=== PATIENT | female | born 1995 | race Caucasian/White ===

== ENCOUNTER 2021-05-09 13:08 | Observation (INO) | payer OTHER, SELFPAY ==
--- NOTE | ~2021-05-09 | CT_ITS ---
EXAMINATION: CT abdomen pelvis w con DATE: 05/09/2021 14:21 INDICATION: Right lower quadrant abdominal pain and flank pain. TECHNIQUE: Computed tomography (CT) of the abdomen and pelvis was performed with 100 mL Omnipaque-350 intravenous contrast. Automated exposure control and iterative reconstruction technique were employe d. The dose-length product was 301.18 mGy-cm. COMPARISON: 01/18/2015 FINDINGS: Millimeter pleural-based nodule at the posterior left lower lobe. Heart size is normal. No pericardia l or pleural effusion. Liver, gallbladder, spleen, pancreas, bilateral adrenal glands and left kidney are normal. There is urothelial enhancement at the right ureter and right renal pelvis suspicious fo r ascending urinary tract infection. There is a small region of decreased parenchymal enhancement at a renal pyramid at the interpolar region of the right kidney suspicious for early pyelonephritis. [place] els including the appendix are normal. Bladder, anteverted uterus and left adnexa are normal. 2 cm pe ripherally enhancing likely corpus luteum cyst in the right ovary. Small amount of likely physiologic free fluid at the cul-de-sac. No abscess or free intraperitoneal gas. No pathologically enlarged abd ominal or pelvic lymphadenopathy. Bones are unremarkable. IMPRESSION: 1. Findings consistent with right-sided ascending urinary tract infection and likely early right pyel onephritis. Reviewed, dictated and finalized at location A. ATTENDANT IMPRESSION: 1. Findings consistent with right-sided ascending urinary tract infection and l ikely early right pyelonephritis.
--- NOTE | ~2021-05-09 | US_ITS ---
EXAMINATION: US abdomen limited DATE: 05/10/2021 14:44 INDICATION: Right upper quadrant pain TECHNIQUE: Multiple grayscale and Doppler ultrasound images of the abdomen were obtained. COMPARISON: None available FINDINGS: Bowel gas obscures visualization of the pancreas. The liver is normal with normal echogenic ity and echotexture. No surface nodularity. Normal hepatopetal flow in the main portal vein. The gall bladder is normal with no abnormal wall thickening, pericholecystic fluid or stones. The normal commo n bile duct measures 3 mm. There was no sonographic Peguero sign. IMPRESSION: 1. Normal sonographic study of the gallbladder. Reviewed, dictated and finalized at location A. 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
[2021-05-09 13:14] VITALS: BP 146/86; PULSE 108; RESP 16; TEMP 36.8; O2SAT 95
[2021-05-09 13:49] LABS: Basophils Percent Auto 0.2 % (0.2-1.2); Hematocrit 38.4 % (37.0-47.0); Immature Granulocyte Absolute 0.05 K/mm3 (0.00-0.031); Immature Granulocyte Percent A 0.4 % (0-0.5); Lymphocytes Absolute Auto 1.25 K/mm3 (0.9-3.2); Lymphocytes Percent Auto 9.6 % (18.3-44.2); Mean Corpuscular HGB Conc 33.9 g/dl (32-36); Mean Corpuscular Hemoglobin 29.6 pg (26-34); Mean Corpuscular Volume 87.5 fl (80-100); Mean Platelet Volume 9.6 fl (7.4-10.4); Monocytes Absolute Auto 1.2 K/mm3 (0.1-0.6); Monocytes Percent Auto 9.2 % (2.6-8.5); Neutrophils Absolute Auto 10.4 K/mm3 (1.3-6.7); Neutrophils Percent Auto 80.6 % (45.5-73.1); Platelet Count Result 261 k/mm3 (150-375); Red Blood Count 4.39 M/mm3 (4.2-5.4); Red Cell Distribution Width 13.2 % (11.5-14.5)
[2021-05-09 13:59] LABS: Alanine Aminotransferase 15 U/L (4-35); Albumin Level 4.4 g/dL (3.5-5.1); Alkaline Phosphatase 58 U/L (38-126); Anion Gap 8 mmol/L (8-16); Aspartate Amino Transferase 18 U/L (14-36); Bilirubin,Total 0.9 mg/dL (0.2-1.3); Blood Urea Nitrogen 8 mg/dL (7-17); Calcium 9.2 mg/dL (8.4-10.2); Carbon Dioxide 21 mmol/L (22-30); Chloride 105 mmol/L (98-107); Estimated CRCL calculation 103 ml/min; Estimated Glomerular Filt Rate > 60; Glucose 104 mg/dL (65-110); Lipase 21 U/L (23-300); Potassium 3.8 mmol/L (3.4-5.0); Sodium 134 mmol/L (137-145)
[2021-05-09 14:11] LABS: Add Urine Microscopic? NO; Appearance Urine Clear (Clear); Bilirubin Urine Negative (Negative); Blood Urine Negative (Negative); Color Urine Colorless (Yellow); Glucose Urine UA Negative (Negative); Ketones Urine Negative (Negative); Leukocyte Esterase Ur Negative LEU/UL (Negative); Nitrate Urine Negative (Negative); Protein Urine Negative (Negative); Urobilinogen Urine Negative mg/dL (<2.0)
--- NOTE | 2021-05-09 14:22 | PC.NURSE ---
pt returned from CT via stretcher.
[2021-05-09 14:23] LABS: Specific Grav Ur 1.002 (1.001-1.035)
--- NOTE | 2021-05-09 14:57 | ED.ABDPAIN ---
HPI - Abdominal Pain General Chief Complaint: Abdominal Pain Stated Complaint: lower abd pain Time Seen by Provider: 05/09/21 13:27 Source: patient Mode of arrival: ambulatory Limitations: no limitations History of Present Illness HPI narrative: This 25 year old female patient with no significant PMH presents to the ER with complaints of having RLQ, suprapubic, RUQ and right flank pain for the past two days. She was evaluated at Urgent care and then referred here. The concern there was for possible Appendicitis, although they did detect that she has a UTI. She denies any fevers for this provider and she has no CP, dyspnea, N/V/D. MD elicited complaint: abdominal pain and flank pain Pertinent past history: none Onset (ago): day(s) (2) Pain Consistency: constant Location: RUQ, RLQ, R flank and suprapubic Severity: mild Pain scale (0-10): 3 Quality: aching Radiation: none Migration to: no migration Exacerbating factors: nothing Relieving factors: nothing Associated symptoms: nausea Treatments prior to arrival: NSAIDs and prescription analgesics Related Data Patient : No Home Medications Medication Instructions Recorded Confirmed No Home Medications 05/09/21 05/09/21 Allergies Allergy/AdvReac Type Severity Reaction Status Date / Time No Known Allergies Allergy Verified 11/30/14 11:08 Review of Systems Review of Systems: All systems reviewed & are unremarkable except as noted in HPI and below Constitutional: Constitutional: Reports no additional constitutional complaints, Denies chills, Denies fever(s) and Denies weakness Cardiovascular: Cardiovascular: Denies chest pain, Denies rapid heart rate and Denies slow heart rate Respiratory: Respiratory: Denies chest congestion, Denies cough, Denies dyspnea and Denies wheezing Gastrointestinal: Gastrointestinal: Reports as per HPI, Denies diarrhea, Reports nausea and Denies vomiting Musculoskeletal: Musculoskeletal: Denies back pain Neurologic: Denies dizziness, Denies headache(s), Denies focal weakness, Denies numbness and Denies weakness Psychiatric: Psychiatric: Denies anxiety and Denies depression Endocrine: Endocrine: Denies excessive sweating, Denies fatigue, Denies polydipsia and Denies polyuria Hematologic/Lymphatic: Hematologic/Lymphatic: Denies easy bleeding and Denies easy bruising Allergic/Immunologic: Allergic/Immunologic: Denies lip swelling, Denies throat swelling, Denies tongue swelling and Denies wheezing Exam Const: General: healthy appearing, no acute distress and alert Orientation/consciousness: patient oriented x3 HENMT: Head: normal to inspection General nose exam: Normal nares present Face and sinus: normal facial exam Mouth: Yes moist mucous membranes Eyes: Pupils: Equal, round and reactive pupils present Neck: Neck: normal visual inspection and no lymphadenopathy Chest: Chest palpation & inspection: normal inspection of the chest Resp: Effort & Inspection: normal respiratory effort, not labored, not tachypneic and no use of accessory muscles Auscultation: clear to auscultation bilaterally Cardio: Rate: regular rate Rhythm: regular rhythm GI: GI Palp: Yes Soft to palpation, Yes Tenderness to palpation present (GI), No Guarding due to palpation present (GI), No Rigid due to palpation, No Hernia present, No Palpable mass present and No Rebound tenderness present Auscultation: normal bowel sounds : General: Yes no CVA tenderness Back/Spine/Pelvis: Back: no CVA tenderness Skin: General skin exam: normal color Rashes: no rashes Neuro: General: patient oriented x3, moves all extremities and no focal motor deficits Extrem: General: normal to inspection and no edema Psych: Appearance: grossly normal Mental Status: mental status grossly normal Affect: normal affect Attitude: cooperative Thought content: Yes Normal thought content present Course Course Emergency Course: I paged the Hospitalist to discuss observatio
[2021-05-09] MEDS: SODIUM CHLORIDE 0.9% IV 1,000 ML 999 ML IV CONT (15:27)
[2021-05-09 16:14] LABS: Lactic Acid Reflex 0.6 mmol/L (0.7-2.1)
[2021-05-09] MEDS: HYDROmorphone HCL INJ (*CRX) 1 MG/ML SYR IV PUSH (16:14)
[2021-05-09] MEDS: ONDANSETRON INJ 4 MG/2 ML VIAL IV PUSH (16:14)
[2021-05-09 17:57] VITALS: BP 124/83; PULSE 110; RESP 16; O2SAT 100
[2021-05-09] MEDS: SODIUM CHLORIDE 0.9% IV 1,000 ML 100 ML IV CONT (18:09)
--- NOTE | 2021-05-09 18:15 | ADMGEN ---
This patient, Lissette Lema, was admitted to 3 [facility] Surg Room 312-01. Report received from HIEU Bridges. Patient/family oriented to hospital policies and general routines including ID bracelet, bed and alarms, visiting hours, pain management, procedures, bathroom and other care routines, personal items, smoking policy, room service/diet, and visiting hours. Information on how to activate the Rapid Response Team has been discussed. Patient/Family are encouraged to report perceived risks to care and to ask questions if they do not understand what they are told or what they should do.
[2021-05-09 20:00] VITALS: BP 123/73; PULSE 86; RESP 18; TEMP 35.6; O2SAT 100
--- NOTE | 2021-05-09 20:12 | PM.IMHP ---
H&P: HPI History of Present Illness Date/Time: 05/09/21 20:12 Chief Complaint: Flank pain. Narrative: This is a 25-year-old female with past medical history significant for recurrent urinary tract infection, former tobacco user, patient presents to the emergency room after having 3 days of right costovertebral angle tenderness now localized to the right flank, patient denies any pain or burning with urination has had some fevers and body aches and pains generalized malaise and poor appetite. Preliminary workup was significant for urinalysis with numerous wbc's, a CT of abdomen and pelvis showed early right-sided pyelonephritis ascending urinary tract infection. Patient has been admitted for the evaluation management and treatment. Review of Systems Review of Systems: Generalized malaise, fevers, muscle aches and pains, right costovertebral angle tenderness, right flank tenderness. Constitutional: Constitutional: Reports chills, Reports fever(s), Reports malaise and Reports poor appetite Eyes: Eyes: Denies change in vision ENT: Denies dysphagia, Denies vertigo, Denies dizziness, Denies nasal congestion, Denies nasal discharge, Denies nasal obstruction and Denies odynophagia Cardiovascular: Cardiovascular: Denies chest pain, Denies claudication, Denies leg edema, Denies lightheadedness, Denies radiating jaw, neck or arm pain, Denies palpitations, Denies dyspnea, Denies dyspnea on exertion and Denies orthopnea Respiratory: Respiratory: Denies cough and Denies dyspnea Gastrointestinal: Gastrointestinal: Denies abdominal pain, Denies diarrhea, Denies nausea and Denies vomiting Genitourinary: Genitourinary: Reports flank pain Musculoskeletal: Musculoskeletal: Reports myalgias Integumentary/Breasts: Skin/Breast: Denies rash Neurologic: Denies focal weakness and Denies Sensory deficit (Neuro) Psychiatric: Psychiatric: Reports no additional psychiatric complaints and Reports as per HPI Endocrine: Endocrine: Denies cold intolerance, Denies heat intolerance, Denies polyphagia, Denies polydipsia, Denies polyuria and Denies palpitations Hematologic/Lymphatic: Hematologic/Lymphatic: Reports no additional hematologic/lymphatic complaints and Reports as per HPI Allergic/Immunologic: Allergic/Immunologic: Reports no additional allergic/immunologic complaints and Reports as per HPI [facility] Social History Social History Smoking packs per day: 1 Smoking cigarettes per day: 20.0 Years smoked: 9 Smoking pack-years: 9.00 Smoking status: Former smoker Tobacco type: cigarettes Alcohol intake: current Drinks per week: 2 Substance use: current Substance use type: marijuana Spiritual care concerns: No Meds Home Medications and Allergies Home Medications Medication Instructions Recorded Confirmed Type No Home Medications 05/09/21 05/09/21 History Allergies Allergy/AdvReac Type Severity Reaction Status Date / Time No Known Allergies Allergy Verified 05/09/21 18:16 Vital Signs Vital Signs - 24 hr 05/09/21 13:14 05/09/21 17:57 Temperature 98.2 F Pulse Rate 108 H 110 H Respiratory Rate 16 16 Blood Pressure 146/86 H 124/83 Pulse Oximetry 95 100 Exam Const: General: cooperative, comfortable, no acute distress, well developed, alert, awake, Physically active and other (Well-appearing) Nutritional Appearance: average body habitus Orientation/consciousness: patient oriented x3 HENMT: Head: normal to inspection, normocephalic and atraumatic Ears: hearing grossly normal bilaterally General nose exam: Normal external nose present Face and sinus: normal facial exam Mouth: Yes Normal oral and palatal mucosa present Eyes: General: appearance normal, both eyes and all related structures Alignment and Position: alignment normal Sclera: sclerae normal Pupils: Equal, round and reactive pupils present EOM: EOMs intact bilaterally Neck: Neck: cynthia
[2021-05-09] MEDS: FAMOTIDINE 20 MG/2 ML VIAL IV PUSH (21:15)
[2021-05-10] VITALS (8 sets, daily range): BP systolic 111–138; BP diastolic 66–85; PULSE 90–112; RESP 16–18; TEMP 36.3–37.4; O2SAT 96–100
[2021-05-10] MEDS: methocarbamoL 500 MG TABLET PO (00:53)
[2021-05-10] MEDS: SODIUM CHLORIDE 0.9% IV 1,000 ML 100 ML IV CONT (03:24)
[2021-05-10 09:16] LABS: Hematocrit 36.3 % (37.0-47.0); Hemoglobin 12.2 g/dL (12.0-15.0); Mean Corpuscular HGB Conc 33.6 g/dl (32-36); Mean Corpuscular Hemoglobin 29.5 pg (26-34); Mean Corpuscular Volume 87.9 fl (80-100); Mean Platelet Volume 9.7 fl (7.4-10.4); Platelet Count Result 254 k/mm3 (150-375); Red Blood Count 4.13 M/mm3 (4.2-5.4); Red Cell Distribution Width 13.1 % (11.5-14.5); White Blood Count 9.5 K/mm3 (4.5-10.0)
[2021-05-10 09:28] LABS: Anion Gap 10 mmol/L (8-16); Blood Urea Nitrogen 5 mg/dL (7-17); Calcium 8.7 mg/dL (8.4-10.2); Carbon Dioxide 22 mmol/L (22-30); Chloride 105 mmol/L (98-107); Estimated CRCL calculation 103 ml/min; Estimated Glomerular Filt Rate > 60; Glucose 128 mg/dL (65-110); Potassium 3.6 mmol/L (3.4-5.0); Sodium 137 mmol/L (137-145)
[2021-05-10] MEDS: HYDROcodone/acetaminophen (*CRX) 5-325 MG TABLET 1 TAB PO ×2 (09:44→13:57)
[2021-05-10] MEDS: FAMOTIDINE 20 MG/2 ML VIAL IV PUSH ×2 (09:44→20:30)
--- NOTE | 2021-05-10 10:35 | PM.IMPN ---
Progress Note: A&P Assessment and Plan (1) Pyelonephritis: Code(s): N12 - Tubulo-interstitial nephritis, not specified as acute or chronic Status: Acute Assessment and Plan: Presented with right back, flank, and upper quadrant pain UA completed at urgent care noted to have blood and bacteria, culture reportedly sent. I have contacted [facility] urgent care for further information to have these results faxed to us, awaiting return call UA at this facility without concerns for infection. No reflex culture was collected and at this time will not repeat culture as she has already received IV antibiotics. CT abdomen/pelvis showed findings consistent with ascending urinary tract infection, likely early right pyelonephritis. Continue IV Rocephin Gentle IV fluids Supportive care. Analgesics and antiemetics available as needed Blood cultures pending Leukocytosis resolved. Patient remains afebrile at this facility. Lactic within normal limits In light of RUQ pain, will proceed with right upper quadrant ultrasound although suspect this is most likely secondary to pyelonephritis Subjective Date/time seen: 05/10/21 10:35 Interval history: Date of service: 05/10/2021 Lissette Lema is a healthy 25-year-old female who is seen in follow-up for pyelonephritis. She is feeling a bit better today. She stated that 1 week ago she developed sudden onset of right flank pain, a couple days following she developed diffuse body aches and had a single episode of dysuria. She also had right upper quadrant pain. Her symptoms did not improve, therefore she went to urgent care 1 day ago where urine test was done. She stated that her urine was dark at that time but she did not have dysuria, hematuria, urgency, or frequency. She also noted that her temperature was 100.3? on initial vitals. She was told that her urine had blood and bacteria and a culture was done. She was directed to the ED where her urine was surprisingly clear without any findings to suggest infection, however a CT scan did show findings consistent with pyelonephritis. At this time, she endorses 7/10 right back and flank pain spreading to the right upper quadrant. Her pain has been up to a 9/10 today and has not gotten below 7. She does endorse some suprapubic discomfort but she states this feels like cramping, as though she might be about to start her menstrual cycle. Her last menstrual period was 4 weeks ago. She does endorse regular periods. Today she has had episodes of feeling intermittently hot and cold and she is endorses sweats. She also endorses nausea and has decreased appetite. She has been able to get up and walk around. She denies dizziness or lightheadedness. Denies shortness of breath, cough, or chest pain. She does note that taking a deep breath does cause worsened pain in her right side. Review of Systems Review of Systems: All systems reviewed & are unremarkable except as noted in HPI and below Exam Narrative: General: Well-nourished, well-appearing 25 year-old female, sitting up in bed, comfortable, NARD Neuro: awake, alert and oriented x4, speech clear, no focal neuro deficits noted HEENMT: normocephalic, atraumatic, EOMI, sclerae anicteric, moist oral mucosa Respiratory: clear to auscultation bilaterally, nonlabored breathing Cardio: regular rate, regular rhythm with S1-S2 Abdomen: nondistended, normoactive bowel sounds, soft, slight RUQ tenderness, Peguero sign negative : Right-sided CVA tenderness Extremities: no edema, erythema, or tenderness to palpation Skin: no rashes or lesions, warm and damp Psych: appropriate mood and affect, judgment and insight intact Objective Data Vital Signs Vital Signs: Vital Signs - 24 hr 05/09/21 13:14 05/09/21 17:57 05/09/21 20:00 Temperature 98.2 F 96.0 F L Pulse Rate 108 H 110 H 86 Respiratory Rate 16 16 18 Blood Pressure 146/86 H 124/83 123/73 Pulse Oximetry 95 100 100 05/10/21 00:
[2021-05-10] MEDS: ENOXAPARIN 40 MG/0.4 ML SYRINGE SUB-Q (11:23)
--- NOTE | 2021-05-10 11:28 | PC.NURSE ---
I attempted to administer the scheduled Enoxaparin 40mg sub-q this morning however the syringe was defective requiring a new one to be sent up from the pharmacy. Upon receipt of the new syringe, I entered pt's room to admin the schedule med upon which the pt's boyfriend was not in the room. He informed me that the other nurse said she didn't need that any more. I attempted to ascertain as to whom he was referring as I am the pt's nurse for the day (which is why I have been in her room several times and administered her other medications) and I never said anything of that nature. The boyfriend became more aggressive but I was able to glean that he was referring to the hospitalist, Shelli Burrell. I explained that she was the hospitalist and that if she had wanted the medication withheld or stopped she would have changed the order to do so therefore since there has been no order changed for this medication (other orders have been entered such as a reduction in the IV fluids, et al.), I have no reason not to administer it unless THE PATIENT is refusing to take the med. The pt stated she is willing to take the med. The boyfriend then very curtly snapped, maybe you just haven't bothered to communicate with her [Shelli]. I explained that other orders have been changed and this one was not therefore she obviously intended for the pt to receive this med. I then left the room to avoid any further aggression from the pt's boyfriend. Upon exiting the room and closing the door, I attempted to contact Shelli Burrell but was not able to do so. I will continue to monitor.
[2021-05-10] MEDS: SODIUM CHLORIDE 0.9% IV 1,000 ML 75 ML IV CONT (13:58)
[2021-05-10] MEDS: MORPHINE SULFATE (*CRX) 2 MG/ML INJ 1 MG IV PUSH (17:16)
[2021-05-10] MEDS: ONDANSETRON INJ 4 MG/2 ML VIAL IV PUSH (17:16)
[2021-05-11] VITALS: BP 121/83; PULSE 93; RESP 16; TEMP 36.6; O2SAT 100
[2021-05-11 01:32] VITALS: TEMP 36.6
[2021-05-11 04:00] VITALS: BP 122/77; PULSE 84; RESP 16; TEMP 36.6; O2SAT 100
[2021-05-11] MEDS: SODIUM CHLORIDE 0.9% IV 1,000 ML 75 ML IV CONT (04:20)
[2021-05-11 06:59] LABS: Hematocrit 34.6 % (37.0-47.0); Hemoglobin 11.2 g/dL (12.0-15.0); Mean Corpuscular HGB Conc 32.4 g/dl (32-36); Mean Corpuscular Hemoglobin 29.3 pg (26-34); Mean Corpuscular Volume 90.6 fl (80-100); Mean Platelet Volume 9.9 fl (7.4-10.4); Platelet Count Result 245 k/mm3 (150-375); Red Blood Count 3.82 M/mm3 (4.2-5.4); Red Cell Distribution Width 13.2 % (11.5-14.5); White Blood Count 7.2 K/mm3 (4.5-10.0)
[2021-05-11 07:16] LABS: Anion Gap 7 mmol/L (8-16); Blood Urea Nitrogen 4 mg/dL (7-17); Calcium 8.3 mg/dL (8.4-10.2); Carbon Dioxide 26 mmol/L (22-30); Chloride 106 mmol/L (98-107); Estimated CRCL calculation 122 ml/min; Estimated Glomerular Filt Rate > 60; Glucose 95 mg/dL (65-110); Potassium 3.7 mmol/L (3.4-5.0); Sodium 139 mmol/L (137-145)
[2021-05-11 08:00] VITALS: BP 123/79; PULSE 83; RESP 16; TEMP 36.7; O2SAT 100
[2021-05-11] MEDS: FAMOTIDINE 20 MG/2 ML VIAL IV PUSH (08:24)
[2021-05-11] MEDS: HYDROcodone/acetaminophen (*CRX) 5-325 MG TABLET 1 TAB PO ×2 (08:24)
--- NOTE | 2021-05-11 10:46 | PM.DS ---
DS: Admitting Diagnosis Discharge Date 05/11/2021 Admitting Diagnosis Pyelonephritis DS: Discharge Diagnosis Discharge Diagnosis (1) Pyelonephritis: Code(s): N12 - Tubulo-interstitial nephritis, not specified as acute or chronic Status: Acute Assessment and Plan: Presented with right back, flank, and upper quadrant pain UA completed at urgent care noted to have blood and bacteria and she was referred to ED. Spoke with RN at urgent care and no culture was collected UA at this facility without concerns for infection, therefore no reflux culture. I did not repeat urine culture as she had already received 2 doses of IV antibiotics prior. CT abdomen/pelvis showed findings consistent with ascending urinary tract infection, likely early right pyelonephritis. She was treated with IV Rocephin Rehydrated with IV fluids Supportive care provided including analgesics antiemetics Blood cultures negative to date. Final cultures will be monitored Leukocytosis resolved. Patient remained afebrile. She had symptomatic improvement, pain had improved and she requested discharge Continue p.o. Bactrim DS bid x 10 days She will need to follow-up with PCP in 1 week for further monitoring Discussed worrisome signs and symptoms for which to seek follow-up evaluation DS: Summary Hospital Course Hospital Course: Date of admission: 05/09/2021 Date of discharge: 05/11/2021 Lissette Lema is a healthy 25-year-old female who presented to the emergency department on 05/09/21 after being referred to the ED from urgent care where she presented with complaints of right back and flank pain. Symptoms and imaging felt to be consistent with pyelonephritis and she was admitted to the hospitalist service for further evaluation and management. Please see above for further details. Patient did have improvement following treatment with IV antibiotics and she will continue oral antibiotics on discharge. She was discharged in hemodynamically stable condition on 05/11/2021 and will follow-up in 1 week for further monitoring Status at Discharge Functional status at discharge: independent ambulation Overall status at discharge: patient is progressing back to baseline Time Spent with Patient Time attestation: Total time spent providing and/or coordinating discharge services: 35 minutes Time spent: Greater than 30 minutes Exam Narrative: General: Well-nourished, well-appearing 25 year-old female, sitting up in bed, comfortable, NARD Neuro: awake, alert and oriented x4, speech clear, no focal neuro deficits noted HEENMT: normocephalic, atraumatic, EOMI, sclerae anicteric, moist oral mucosa Respiratory: clear to auscultation bilaterally, nonlabored breathing Cardio: regular rate, regular rhythm with S1-S2 Abdomen: nondistended, normoactive bowel sounds, soft, nontender to palpation : Mild right-sided CVA tenderness improved from prior exam Extremities: no edema, erythema, or tenderness to palpation Skin: no rashes or lesions, warm and damp Psych: appropriate mood and affect, judgment and insight intact DS: Data Data Completed and Pending Labs on day of discharge: Labs from last 24 hours 05/11/21 05/11/21 06:20 06:20 WBC 7.2 RBC 3.82 L Hgb 11.2 L Hct 34.6 L MCV 90.6 MCH 29.3 MCHC 32.4 RDW 13.2 Plt Count 245 MPV 9.9 Sodium 139 Potassium 3.7 Chloride 106 Carbon Dioxide 26 Anion Gap 7 L BUN 4 L Creatinine 0.50 L Estim Creat Clear Calc 122 Estimated GFR > 60 Glucose 95 Calcium 8.3 L Preliminary micro results at discharge 05/09/21 15:53 Blood Culture - Preliminary Blood 05/09/21 15:53 Blood Culture - Preliminary Blood Imaging Radiologist's impression: ITS Impressions Abdomen/Pelvis CT 05/09/21 14:29 IMPRESSION: 1. Findings consistent with right-sided ascending urinary tract infection and likely early right pyelonephritis. Abdomen Ultrasound 05/10/21 14
== END 2021-05-11 12:44 | disposition home or self-care (01) ==
LOC: ANHED 16:05 → ANH3MEDSUR 17:15
PROVIDERS: Physician Assistant; Admitting Provider Internal Medicine; Emergency Provider Nurse Practitioner Adult Health; PCP Family Medicine Adolescent Medicine; Visit Provider Family Medicine
DX: N12 Tubulo-interstitial nephritis, not specified as acute or chronic (principal); R50.9 Fever, unspecified; F12.90 Cannabis use, unspecified, uncomplicated; Z87.891 Personal history of nicotine dependence
CPT/HCPCS: 36415; 74177; 76705; 80048; 80053; 81003; 81025; 83605; 83690; 85025; 85027; 87040; 96361; 96365; 96372; 96374; 96375; 96376; 99285; A9270; G0378; G0379; J0131; J0696; J1170; J1650; J2270; J2405; J7030; Q9967

== ENCOUNTER 2022-05-23 14:24 | Outpatient (RCR) | payer BC, SELFPAY ==
[2022-05-23] MEDS: RHO(D) IMMUNE GLOBULIN 300 MCG/2 ML SYRINGE IM (11:06)
== END 2022-08-19 23:59 | disposition home or self-care (01) ==
LOC: ANHLAB 14:24
PROVIDERS: PCP Family Medicine Adolescent Medicine; Visit Provider Advanced Practice Midwife
DX: O02.1 Missed abortion (principal); Z29.13 Encounter for prophylactic Rho(D) immune globulin; O36.0130 Maternal care for anti-D [Rh] antibodies, third trimester, not applicable or unspecified; Z3A.00 Weeks of gestation of pregnancy not specified
CPT/HCPCS: 36415; 84702; 85461; 86850; 86900; 86901; 90384; 96372; J2790

== ENCOUNTER 2022-05-28 14:59 | Outpatient (CLI) | payer BC, SELFPAY | END 2022-05-28 15:00 | disposition home or self-care (01) | PROVIDERS: PCP Family Medicine Adolescent Medicine; Visit Provider Obstetrics & Gynecology | DX: O02.1 Missed abortion (principal); Z3A.00 Weeks of gestation of pregnancy not specified | CPT/HCPCS: 36415; 84702 ==

== ENCOUNTER 2022-09-09 16:59 | Outpatient (RCR) | payer BC, SELFPAY ==
[2022-09-10] MEDS: RHO(D) IMMUNE GLOBULIN 300 MCG/2 ML SYRINGE IM (15:12)
== END 2022-12-08 23:59 | disposition home or self-care (01) ==
LOC: ANHLAB 16:59
PROVIDERS: PCP Family Medicine Adolescent Medicine; Visit Provider Obstetrics & Gynecology
DX: Z29.13 Encounter for prophylactic Rho(D) immune globulin (principal); O20.0 Threatened abortion; O36.0190 Maternal care for anti-D [Rh] antibodies, unspecified trimester, not applicable or unspecified; Z3A.00 Weeks of gestation of pregnancy not specified
CPT/HCPCS: 36415; 85461; 86850; 86900; 86901; 90384; 96372; J2790

== ENCOUNTER 2022-11-12 15:06 | Emergency (ER) | payer BC, SELFPAY ==
--- NOTE | 2022-11-12 15:16 | ED.HA ---
HPI - Headache General Chief Complaint: Headache Stated Complaint: Headache/15 Week Time Seen by Provider: 11/12/22 15:16 Source: patient Mode of arrival: ambulatory Limitations: no limitations History of Present Illness HPI Narrative: Lissette is a 27-year-old female patient presenting to clinic today with complaints of a headache x3 days. She reports that she is 15 weeks . She contacted her c iron worker and they suggested she come in to the clinic to be evaluated today. Related Data Home Medications Medication Instructions Recorded Confirmed No Home Medications 06/18/22 11/12/22 Allergies Allergy/AdvReac Type Severity Reaction Status Date / Time No Known Allergies Allergy Verified 11/12/22 15:31 Review of Systems Review of Systems: Pertinent positives per HPI. Patient denies any fever, chills, rash, visual changes, dizziness, cough, runny nose, sore throat, shortness of breath, chest pain, palpitations, nausea, vomiting, diarrhea, constipation, abdominal pain, or any urinary issues. [facility] Family History Family History Father Acute myocardial infarction Heart disease Hypertension Grandparent Diabetes mellitus Kidney disease Other Kidney disease Social History Social History Smoking status: Former smoker Tobacco type: cigarettes Second hand tobacco smoke exposure: No Smoking end date: 03/23/19 Alcohol intake: current Drinks per week: 2 Substance use: never Substance use type: does not use Living arrangements: with roommate(s) Occupation/Education: occupation Gender identity (if verbalized by the patient): Female Sexual Orientation (if Verbalized by the Patient): Straight or Heterosexual Spiritual care concerns: No Agree to blood products: Yes Comments At the time of my signature, I reviewed and agree with the nursing past medical, surgical, social, and family history. There is no relevant family history pertinent to the patient complaint. Exam Narrative: General: Well-developed, well nourished, in no apparent distress Head: Normocephalic, atraumatic Eyes: Pupils equally round and reactive to light bilaterally, EOM intact, sclera and conjunctive clear, no discharge, lids normal Ears: TMs intact and clear, ear canals clear, no drainage, grossly hearing normal. Nose: Nares patent, no discharge, no inflammation, no sinus tenderness. Mouth: Oropharynx without lesions or masses, good dentition, MMM. Tongue midline, even rise and fall of uvula Neck: Supple, trachea midline, no enlargement of anterior or posterior cervical nodes, no thyroid masses or goiter palpable. Cardio: Regular rate and rhythm, s1 and s2 normal, no murmur appreciated. Resp: Clear to auscultation bilaterally anteriorly and posteriorly, no rhonchi, rales, wheezing or rubs Abdomen: Soft, pliable, bowel sounds present all 4 quadrants, no CVAT tenderness, no organomegaly Musculoskeletal: No deformity, non-tender to palpation, grossly normal range of motion, muscle strength strong and equal, peripheral pulse strong, no edema, no cyanosis, normal gait and station Neuro: Alert and oriented x4 with normal speech, no focal deficits, cranial nerves I through XII intact, muscle strength 5 out of 5, sensation intact bilaterally Course Course Emergency Course: Portions of this record may have been created with voice recognition software. Level of Care: Express Care Visit Vital Signs Vital signs: Vital signs reviewed MDM - Headache MDM Narrative Medical decision making narrative: At the time of visit patient is resting on the exam table. Urinalysis was performed and shows a trace of ketone without sign of infection, blood, or protein. Blood pressure is 126/84 in the clinic today. I suspect patient has acute headache possibly from mild dehydration. Supporti
[2022-11-12 15:17] VITALS: BP 126/84; PULSE 88; RESP 16; TEMP 36.5; O2SAT 100
== END 2022-11-12 15:36 | disposition home or self-care (01) ==
PROVIDERS: Emergency Provider Nurse Practitioner Family; PCP Obstetrics & Gynecology
DX: O99.891 Other specified diseases and conditions complicating pregnancy (principal); Z3A.15 15 weeks gestation of pregnancy; G44.209 Tension-type headache, unspecified, not intractable; Z87.891 Personal history of nicotine dependence
CPT/HCPCS: 81003; 99213; G0463

== ENCOUNTER 2022-12-08 16:32 | Outpatient (RCR) | payer BC, SELFPAY ==
[2022-12-09] MEDS: RHO(D) IMMUNE GLOBULIN 300 MCG/2 ML SYRINGE IM (10:11)
== END 2023-03-08 23:59 | disposition home or self-care (01) ==
LOC: ANHLAB 16:32
PROVIDERS: PCP Obstetrics & Gynecology; Visit Provider Obstetrics & Gynecology
DX: Z29.13 Encounter for prophylactic Rho(D) immune globulin (principal); O26.859 Spotting complicating pregnancy, unspecified trimester; Z3A.01 Less than 8 weeks gestation of pregnancy
CPT/HCPCS: 36415; 85461; 86850; 86880; 86900; 86901; 86902; 90384; 96372; J2790

== ENCOUNTER 2024-04-01 23:19 | Emergency (ER) | payer SELFPAY ==
--- NOTE | ~2024-04-01 | CT_ITS ---
EXAMINATION: CT brain wo con DATE: 04/01/2024 23:42 INDICATION: AMS, trauma . TECHNIQUE: Computed tomography (CT) of the head was performed without intravenous contrast. The mA wa s adjusted according to patient size. Iterative reconstruction technique was employed. The dose-lengt h product was 681.00 mGy-cm. COMPARISON: 04/03/2013. FINDINGS: No acute intracranial hemorrhage or extra-axial fluid collection. No hydrocephalus, mass, or herniation. No acute ischemic infarct. Unremarkable dural venous sinus attenuation. No acute osseous abnormality. Mild left maxillary sinus mucosal thickening, the remaining aerated spaces are clear. IMPRESSION: No acute intracranial process. Reviewed, dictated and finalized at location [facility]. [employer]
[2024-04-01 23:07] VITALS: BP 90/55; PULSE 117; RESP 20; TEMP 37; O2SAT 100
--- NOTE | 2024-04-01 23:18 | ED.GENADULT ---
HPI - General Adult General Chief complaint: Alcohol Stated complaint: drunk and combative History of Present Illness HPI narrative: 28-year-old female presented emergency department for evaluation after becoming intoxicated and combative at home. states the patient does not drink regularly this is her 1st time drinking after having a baby approximately 11 months ago. Patient came home and started become aggressive and states he needed to restrain the patient. Patient ultimately called the police and police had to restrain the patient. EMS was called and patient was chemically sedated with 5 Haldol and 5 of Versed. Patient was transferred to the emergency department by EMS. Upon arrival to the emergency department patient is resting comfortably. Patient is no longer in handcuffs. Patient does respond to voice but is somnolent and does not follow commands at this time. Related Data Allergies Allergy/AdvReac Type Severity Reaction Status Date / Time No Known Allergies Allergy Verified 01/27/23 14:51 Review of Systems Review of Systems: ROS unobtainable: Yes unobtainable due to mental status [facility] Family History Family History Father Acute myocardial infarction Heart disease Hypertension Grandparent Diabetes mellitus Kidney disease Other Kidney disease Social History Social History Smoking status: Former smoker Tobacco type: cigarettes Second hand tobacco smoke exposure: No Smoking end date: 03/23/19 Alcohol intake: current Drinks per week: 2 Substance use: never Substance use type: does not use Living arrangements: with roommate(s) Occupation/Education: occupation Gender identity (if verbalized by the patient): Female Sexual Orientation (if Verbalized by the Patient): Straight or Heterosexual Spiritual care concerns: No Agree to blood products: Yes Exam Narrative: APPEARANCE: Somnolent HEAD: normocephalic, atraumatic. EYES: PERRLA/EOMI, conjunctivae clear. NOSE: Normal no drainage EARS:TMS clear with good light reflex. THROAT: Pharynx clear, no exudate. NECK: Supple. No adenopathy, no masses. RESPIRATORY: Airway patent, respirations nonlabored. Clear to auscultation bilaterally, no rales, rhonchi, wheezing. CARDIOVASCULAR: Regular rate and rhythm without murmurs rubs or gallops. ABDOMINAL: Soft, nontender, nondistended, normal bowel sounds MUSCULOSKELETAL: Moves all extremities. Strength/ROM intact, No edema, No calf tenderness. NEURO: Alert. Cranial nerves II through XII intact. Good gait. Good coordination SKIN: Warm, dry. Normal Color Course Vital Signs Vital signs: Vital Signs Temperature 98.6 F 04/01/24 23:07 Pulse Rate 117 H 04/01/24 23:07 Respiratory Rate 20 04/01/24 23:07 Blood Pressure 90/55 L 04/01/24 23:07 Pulse Oximetry 100 04/01/24 23:07 Oxygen Delivery Room Air 04/01/24 23:07 Temperature 98.6 F 04/01/24 23:07 Pulse Rate 120 H 04/02/24 01:45 Respiratory Rate 23 H 04/02/24 01:45 Blood Pressure 108/65 04/02/24 01:45 Pulse Oximetry 98 04/02/24 01:45 Oxygen Delivery Room Air 04/01/24 23:07 Medical Decision Making MDM Narrative Medical decision making narrative: 28-year-old female presenting to emergency department for evaluation after becoming increasingly agitated after alcohol consumption. Patient did receive Haldol and Versed at home. Upon arrival to the emergency department patient was more sedate. Patient did receive 2 L IV fluids and when patient woke up after being her a few hours she did feel improved was able to ambulate at baseline. Patient does not recall the events of the evening. Patient denies any pain or injury, head CT was negative. Family prefers to take the patient home. All questions concerns were addressed Differential Diagnosis Differential Diagnosis: Alcohol intoxication, substance abuse, agitation, intracranial injury Vital Signs Vital Signs: Vital Signs Temperature 98.6 F 04/01/24 23:07 Pulse Rate 117 H 04/01/24 23:07 Respiratory Rate 20 04/01/24 23:07 Blood Pressure 90/55 L 04/01/24 23:07 Pulse Oximetry 100 04/01/24 23:07 Oxygen Delivery Room Air 04/01/24 23:07 Temperature 98.6 F 04/01/24 23:07 Pulse Rate 120 H 04/02/24 01:45 Respiratory Rate 23 H 04/02/24 01:45 Blood Pressure 108/65 04/02/24 01:45 Pulse Oximetry 98 04/02/24 01:45 Oxygen Delivery Room Air 04/01/24 23:07 Lab Data Lab results reviewed: Yes I reviewed the patient's lab results. Imaging Data Radiologist's impression: Impressions Head CT 04/01/24 23:46 IMPRESSION: No acute intracranial process. Discharge Plan Discharge Clinical Impression: Agitation, Alcohol intoxication Patient Disposition: Home, Self-Care Condition: Stable Instructions: Antibiotic Form, Alcohol Intoxication (ED) Additional Instructions: Refrain from alcohol consumption. Have close follow-up with your primary care physician. If you have any worsening symptoms please call or return to the emergency department. Patient Language: Swedish Prescriptions: No Action cephalexin 500 mg capsule 500 mg PO TID Qty: 15 0RF Follow-up/Referrals: Annmarie,Marcella Ernst MD [Primary Care Provider] -
[2024-04-01] MEDS: SODIUM CHLORIDE 0.9% IV 1,000 ML 999 ML IV CONT (23:25)
[2024-04-01 23:26] VITALS: PULSE 104; RESP 15; O2SAT 100
[2024-04-01 23:45] VITALS: PULSE 102; RESP 16; O2SAT 100
[2024-04-02] VITALS: PULSE 99; RESP 15; O2SAT 100
[2024-04-02] MEDS: SODIUM CHLORIDE 0.9% IV 1,000 ML 999 ML IV CONT (00:48)
[2024-04-02 01:01] VITALS: BP 102/48; PULSE 119; RESP 21
[2024-04-02 01:30] VITALS: BP 101/62; PULSE 114; RESP 21
[2024-04-02 01:45] VITALS: BP 108/65; PULSE 120; RESP 23; O2SAT 98
--- NOTE | 2024-04-02 02:05 | PC.NURSE ---
pt requesting to go to the bathroom. 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 pt is thrashing in the bed. pt is speaking in escalated tone with at this time. pt screaming, I am here against my will. this is fucking ridiculous. I am naked with police officers everywhere. Just give me something to make me sleep again. I had 2 drinks and now I am in the hospital against my will this is fucking stupid . this rn expalined to patient why she was in the ER. patient continued to escalate in conversation. edp dr. martinez at bedside explaining to patient why she is here. pt was able to ambulate with an unassisted gait into the bathroom to urinate at this time. pt and father/ mother state they are unwilling to take her home due to not feeling safe. this escalated patient. patient then ripped iv catheter out of her arm. iv catheter intact upon the floor at this time. pt not willing to be reassessed at this time for vitals. ed security at bedside at this time. pt then bagn to throw objects in the room. patient screaming at visitors at this time. pt then began to leave room and wonder the ER hallways. this rn explaining to patient that she needs to go back to her room. patient screaming through the hallways. ed security aware and observing patient. patient is now screaming about needing water at this time . this rn gave patient water and explained how to act a hospital setting. pt calmly walked back into her room with visitors. patient able to sit on the bed and calm down. ed security still at bedside.
== END 2024-04-02 03:46 | disposition home or self-care (01) ==
PROVIDERS: Emergency Provider Emergency Medicine; PCP Obstetrics & Gynecology
DX: F10.129 Alcohol abuse with intoxication, unspecified (principal); R45.1 Restlessness and agitation; Z87.891 Personal history of nicotine dependence; Y90.9 Presence of alcohol in blood, level not specified
CPT/HCPCS: 70450; 96360; 96361; 99284; J7030